=== PATIENT | male | born 1945 | race Caucasian/White ===

== ENCOUNTER 2022-10-26 10:10 | Observation (INO) | payer OTHER ==
[~2022-10-26] VITALS: Ht 177.8 cm; Wt 87.0 kg
[~2022-10-26 10:10] MED LIST: BUME2 PO; CLOP75 PO; GLIP10ER PO; INS70/30PN SC; LEVSOD100 PO; LOSHYD100 PO; MELO7.5 PO; METO25ER PO; OMEP20ER PO; PARO20 PO; ROSU10TA PO; SITA100T2 PO; THYROID; TRIHYD253A PO; VALS80; VALS80 PO
[2022-10-26 11:01] LABS: BASOPHILS ABSOLUTE AUTO 0.05 K/mm3 (0.00-0.23); BASOPHILS PERCENT AUTO 0 % (0-2); EOSINOPHILS ABSOLUTE AUTO 0.03 K/mm3 (0.00-0.68); EOSINOPHILS PERCENT AUTO 0 % (0-6); Hematocrit 37.9 % (37.0-53.0); Hemoglobin 12.6 g/dL (13.5-17.5); IMMATURE GRAN ABSOLUTE AUTO 0.06 K/mm3 (0.00-0.10); IMMATURE GRAN PERCENT AUTO 0 % (0-1); LYMPHOCYTES ABSOLUTE AUTO 0.61 K/mm3 (0.84-5.20); LYMPHOCYTES PERCENT AUTO 4 % (21-46); MONOCYTES PERCENT AUTO 10 % (4-13); Mean Corpuscular HGB 27.8 pg (26.0-34.0); Mean Corpuscular HGB Conc 33.2 g/dL (31.5-36.5); Mean Corpuscular Volume 84 fL (80-100); Mean Platelet Volume 12.7 fL (9.1-12.4); NEUTROPHILS PERCENT AUTO 85 % (41-73); Platelet Count 173 K/mm3 (150-400); RDW Coefficient Variation 12.7 % (11.7-14.2); RDW Standard Deviation 38.7 fL (35.1-46.3); Red Blood Cell Count 4.54 M/mm3 (4.30-5.90); White Blood Cell Count 13.95 K/mm3 (4.00-11.30)
[2022-10-26 11:17] LABS: Albumin, Blood 3.4 g/dL (3.4-5.0); Albumin/Globulin Ratio 0.9 (0.8-1.8); Bilirubin, Total 1.6 mg/dL (0.1-1.0); Bun/Creatinine Ratio 14.6 (12.0-20.0); Calcium, Blood 8.8 mg/dL (8.5-10.1); Creatinine, Blood 1.37 mg/dL (0.60-1.20); Globulin, Blood 3.6 g/dL (2.2-4.0); Potassium, Blood 3.8 mmol/L (3.5-5.5)
[2022-10-26] MEDS ORDERED: AMLO5 PO (12:29)
[2022-10-26] MEDS ORDERED: ROSU10TA PO (12:29)
[2022-10-26] MEDS ORDERED: LOSA25 PO (12:47)
--- NOTE | 2022-10-26 15:02 | NUR ---
pt arrived to the medical floor from the er a/ox4, pleasant and cooperative. pt oriented to the room layout and call system. pt denies any chest pain n/v, or shortness of breath. call light in reach, will continue to monitor and assess for changes
--- NOTE | 2022-10-26 18:30 | NUR ---
PT IS A/OX4, PLEASANT AND COOPERATIVE. THE PT IS UP WITH MINIMAL STAND BY ASSIST. PT DENIED ANY PAIN, N/V OR SOB. PT APPEARS TO BE BREATHING EASILY ON RA AT THIS TIME. CALL LIGHT IN REACH. WILL CONTINUE TO MONITOR AND ASSESS FOR CHANGES. VSS AT THIS TIME. TELE ON
--- NOTE | 2022-10-27 05:36 | NUR ---
SHIFT SUMMARY A/OX4, IND IN ROOM. TELE SR IN THE 60S. DENIES CHEST PAIN/PRESSURE. VSS, NO ACUTE CHANGES AT THIS TIME. BED IN LOWEST POSIITON WITH CALL LIGHT IN REACH. WILL CONTINUE TO MONITOR AND REPORT TO ONCOMING RN.
[2022-10-27 05:53] LABS: BASOPHILS ABSOLUTE AUTO 0.04 K/mm3 (0.00-0.23); BASOPHILS PERCENT AUTO 0 % (0-2); EOSINOPHILS ABSOLUTE AUTO 0.05 K/mm3 (0.00-0.68); EOSINOPHILS PERCENT AUTO 0 % (0-6); Hematocrit 32.5 % (37.0-53.0); Hemoglobin 10.9 g/dL (13.5-17.5); IMMATURE GRAN ABSOLUTE AUTO 0.09 K/mm3 (0.00-0.10); IMMATURE GRAN PERCENT AUTO 1 % (0-1); LYMPHOCYTES PERCENT AUTO 10 % (21-46); MONOCYTES ABSOLUTE AUTO 1.32 K/mm3 (0.16-1.47); MONOCYTES PERCENT AUTO 11 % (4-13); Mean Corpuscular HGB 28.1 pg (26.0-34.0); Mean Corpuscular HGB Conc 33.5 g/dL (31.5-36.5); Mean Corpuscular Volume 84 fL (80-100); NEUTROPHILS ABSOLUTE AUTO 8.94 K/mm3 (1.96-9.15); NEUTROPHILS PERCENT AUTO 77 % (41-73); Platelet Count 124 K/mm3 (150-400); RDW Coefficient Variation 12.9 % (11.7-14.2); RDW Standard Deviation 38.9 fL (35.1-46.3); Red Blood Cell Count 3.88 M/mm3 (4.30-5.90); White Blood Cell Count 11.64 K/mm3 (4.00-11.30)
[2022-10-27 05:54] LABS: Mean Platelet Volume 13.6 fL (9.1-12.4)
[2022-10-27 06:35] LABS: Magnesium, Blood 1.9 mg/dL (1.6-2.4)
[2022-10-27 06:39] LABS: Albumin/Globulin Ratio 0.9 (0.8-1.8); Bun/Creatinine Ratio 17.4 (12.0-20.0); Calcium, Blood 8.5 mg/dL (8.5-10.1); Creatinine, Blood 1.61 mg/dL (0.60-1.20); Globulin, Blood 3.3 g/dL (2.2-4.0); Potassium, Blood 4.1 mmol/L (3.5-5.5); Total Protein, Blood 6.3 g/dL (6.4-8.2)
--- NOTE | 2022-10-27 07:33 | NUR ---
Awake, alert and oriented. Denies pain/discomfort in chest with deep inspiration. STates his only pain this morning is in the back of his neck when he is lying down. Otherwise he states he feels fine. States eating and drinking fine yesterday. IV infusing NS at 75 cc/hour. States that he was awoken often last night and this morning he wants to take a nap before breakfast.
[2022-10-27] MEDS ORDERED: NOVOLOG MI100 UNIT/2 SC (10:50)
[2022-10-27] MEDS ORDERED: ASPI325 PO (10:53)
[2022-10-27] MEDS ORDERED: COLCHICINE0.6 MG PO (10:54)
--- NOTE | 2022-10-27 11:35 | NUR ---
AFter discharge instructions, pt states he is going to visit his sister in room 359 before going home. Ambulatory independently without difficulty.
== END 2022-10-27 11:37 | disposition home or self-care (01) ==
LOC: ER 10:10 → PCU 10:11 → ERHOLD 10:11 → PCU 14:24
PROVIDERS: Nurse Practitioner Acute Care; Student in an Organized Health Care Education/Training Program; ADMIT Internal Medicine
DX: I48.0 Paroxysmal atrial fibrillation (principal); I30.9 Acute pericarditis, unspecified; R07.9 Chest pain, unspecified; Z86.73 Personal history of transient ischemic attack (TIA), and cerebral infarction without residual deficits; E03.9 Hypothyroidism, unspecified; Z79.82 Long term (current) use of aspirin; Z79.02 Long term (current) use of antithrombotics/antiplatelets; Z79.4 Long term (current) use of insulin; E11.22 Type 2 diabetes mellitus with diabetic chronic kidney disease; I12.9 Hypertensive chronic kidney disease with stage 1 through stage 4 chronic kidney disease, or unspecified chronic kidney disease; E78.5 Hyperlipidemia, unspecified; N18.30 Chronic kidney disease, stage 3 unspecified
CPT/HCPCS: 36415; 71046; 80053; 82947; 83735; 83880; 84443; 84484; 85025; 85651; 86140; 93005; 93010; 93306; 96361; 96374-59; 99285-25; A9270; G0378; J7030

== ENCOUNTER 2025-09-19 12:16 | Observation (INO) | payer OTHER ==
[~2025-09-19] VITALS: Ht 177.8 cm; Wt 82.1 kg
[~2025-09-19 12:16] MED LIST changes: +AMLO5 PO; +ASPI325 PO; +COLCHICINE0.6 MG PO; +LOSARTAN POTAS100 M1 PO; +NOVOLOG MI100 UNIT/2 SC
[2025-09-19 12:55] LABS: BASOPHILS ABSOLUTE AUTO 0.03 K/mm3 (0.00-0.23); BASOPHILS PERCENT AUTO 0 % (0-2); EOSINOPHILS ABSOLUTE AUTO 0.13 K/mm3 (0.00-0.68); EOSINOPHILS PERCENT AUTO 2 % (0-6); Hematocrit 19.2 % (37.0-53.0); IMMATURE GRAN ABSOLUTE AUTO 0.05 K/mm3 (0.00-0.10); IMMATURE GRAN PERCENT AUTO 1 % (0-1); LYMPHOCYTES ABSOLUTE AUTO 0.47 K/mm3 (0.84-5.20); LYMPHOCYTES PERCENT AUTO 6 % (21-46); MONOCYTES ABSOLUTE AUTO 0.65 K/mm3 (0.16-1.47); MONOCYTES PERCENT AUTO 9 % (4-13); Mean Corpuscular HGB Conc 28.6 g/dL (31.5-36.5); Mean Corpuscular Volume 73 fL (80-100); NEUTROPHILS ABSOLUTE AUTO 6.22 K/mm3 (1.96-9.15); NEUTROPHILS PERCENT AUTO 82 % (41-73); NRBC ABSOLUTE 0.02 K/mm3 (0.00-0.02); NRBC Auto 0.3 /100 WBC (0.0-0.2); Platelet Count 199 K/mm3 (150-400); RDW Coefficient Variation 17.3 % (11.7-14.2); RDW Standard Deviation 46.0 fL (35.1-46.3)
[2025-09-19] MEDS ORDERED: Pantoprazole Sodium 40 MG Injection IV ONE ×2 (12:55)
[2025-09-19 13:10] LABS: Hemoglobin 5.5 g/dL (13.5-17.5)
[2025-09-19 13:12] LABS: Prothrombin Time Results 12.9 Sec (9.7-11.5)
[2025-09-19 13:20] LABS: Alanine Aminotransfer (ALT/SGP 22.0 U/L (12-78); Albumin, Blood 3.5 g/dL (3.4-5.0); Albumin/Globulin Ratio 1.2 (0.8-1.8); Anion Gap 11.0 mmol/L (3-11); Aspartate Aminotrans (AST/SGOT 23.0 U/L (12-37); Bilirubin, Total 0.8 mg/dL (0.1-1.0); Blood Urea Nitrogen 32.0 mg/dL (8-24); CO2, Blood 20.0 mmol/L (21-32); Calcium, Blood 8.7 mg/dL (8.5-10.1); Chloride, Blood 111.0 mmol/L (98-108); Creatinine, Blood 2.32 mg/dL (0.60-1.20); Globulin, Blood 2.9 g/dL (2.2-4.0); Glucose, Blood 163.0 mg/dL (70-99); Potassium, Blood 4.6 mmol/L (3.5-5.5); Sodium, Blood 137.0 mmol/L (136-145); Total Protein, Blood 6.4 g/dL (6.4-8.2)
[2025-09-19 15:03] LABS: Ferritin, Serum 14.0 ng/mL (26-388); Total Iron Binding Capacity 406.0 ug/dL (250-450)
[2025-09-19] MEDS ORDERED: FLU VACC TS2025(65UP)/MF59C/PF 45 MCG/0.5 ML SYRINGE IM SCH (16:40)
[2025-09-19] MEDS ORDERED: Iron Dextran 50 MG / ML 2ML Vial IV ONE (16:45)
[2025-09-19] MEDS ORDERED: Iron Dextran 975 MG in NS 250 ML IV ONE (18:00)
[2025-09-19 18:23] VITALS: BP 124/71
[2025-09-19] MEDS ORDERED: NS 500 ML IV SCH (18:25)
--- NOTE | 2025-09-19 18:31 | NUR ---
New patient admit @ 6:31 pm. 80 Male, full code, super sweet, Here for Hemo. Needs urgent infusion, Hemo is 5. Upon arrival to med floor room 345, skin check, vitals, weight, home med conversation, Protonix given in the e.r. Steady on feet but stated "dizzy". Patient informed Black Tarry stools Q6 months. Hx Erosive esopgitis, Kidney, Chemo, Anemia, AC/HS blood sugars. Performed in E.R. Here for observation and infusion. Fresh ice water, Urinal at bedside and call light in reach.
[2025-09-19] MEDS ORDERED: DILT120 PO (18:32)
[2025-09-19] MEDS ORDERED: Insulin Lisp Protam 75/Lisp 25 100 Unit/ML 3ML Pen SC SCH (21:00)
[2025-09-19 21:11] VITALS: BP 109/62
[2025-09-19] MEDS ORDERED: NS 500 ML IV ONE (21:55)
--- NOTE | 2025-09-19 21:57 | NUR ---
CALL PLACE TO PROVIDER REGARDING PTS BLOOD PRESSURE. ORDERS GIVEN AND ENTERED IN. HOSPITALIST INFORMED OF PT FEELING DIZZY AND NAUSEOUS. HOSPITALIST ASKED IF HE COULDCOME SIGN THE HIGH RISK FORM AND STATED HE WAS TIED UP AND TO CAll .
--- NOTE | 2025-09-19 22:03 | NUR ---
CALL PLACED TO REGARDING HIGH RISK TRANSFUSION FORM NEEDINGTO BE SIGNED. PROVIDER DID NOT ANSWER.
--- NOTE | 2025-09-19 22:09 | NUR ---
CALLPLACE TO [facility] SECOND TIME REGARDING THE HIGH RISK BLOOD FORM. NO ANSWER. CALL PLACED TO ROSA JASMINE ABOUT SIGNING THE FORM. THIS NURSE STATED THAT SHE WOULD WALK THE FORM DOWN TO THE PROVIDER TO SIGN BUT PROVIDER STATED HE WAS NOTIN THE HOSPITAL AT THIS TIME AND WILL BE BACK IN 6 MINUETS. PROVIDER STATED HE WILL GIVE DR. ALAN A CALL TO COME SIGN IT AND IF HE CAN NOT THEN ROSA JASMINE STATED HE WILL BE UP SIGN. WE RECIEVED A CALL FROM DR. ALAN AT [phone] REGARDING THIS ISSUE.
[2025-09-19 22:20] VITALS: BP 121/61
--- NOTE | 2025-09-19 22:36 | NUR ---
dr. nobles came up to the pts bedside and examined pt and educated him on the form and then the form. High risk transfusion form sent back to blood bank with blod slip.
[2025-09-19 22:37] VITALS: BP 118/65
[2025-09-19 22:50] VITALS: BP 118/65
[2025-09-19 23:08] VITALS: BP 116/68
[2025-09-20 00:16] VITALS: BP 117/68
[2025-09-20 01:28] VITALS: BP 121/72
[2025-09-20 02:36] VITALS: BP 117/7; BP 117/76
[2025-09-20 03:43] VITALS: BP 120/79
--- NOTE | 2025-09-20 04:08 | NUR ---
CALL PLACED TO PROVIDER: CALL PLACED TO PROVIDER ABOUT LARGE AMOUNT OF BLOOD IN STOOL AND TOILET. NO NEW ORDERS.
--- NOTE | 2025-09-20 04:13 | NUR ---
SHIFT SUMMARY: PT IS AOX4 AND ABLE TO MAKE NEEDS KNOW. PT HAD A BAG OF IRON AT THE START OF SHIFT AND 2 UNITS OF BLOOD. PT IS A 1 PERSON AST TO THE BATHROOM DUE TO PT STATING THEY FEEL NAUSEOUS AND DIZZY AND THEN FEELING TIRED WITH EXCERTION. PT STATED THAT AFTER THEY WALK A SHORT DISTANCE THEY HAVE TO STOP AND RECOVER FOR 3 TO 5 MINUETS. PT IS CONTIENT OF BOWEL AND BLADDER.
[2025-09-20 05:30] LABS: Hematocrit 26.9 % (37.0-53.0); Hemoglobin 8.5 g/dL (13.5-17.5); Mean Corpuscular HGB Conc 31.6 g/dL (31.5-36.5); Mean Corpuscular Volume 76 fL (80-100); NRBC ABSOLUTE 0.05 K/mm3 (0.00-0.02); NRBC Auto 0.6 /100 WBC (0.0-0.2); Platelet Count 167 K/mm3 (150-400); RDW Coefficient Variation 19.2 % (11.7-14.2); RDW Standard Deviation 52.4 fL (35.1-46.3)
[2025-09-20] MEDS ORDERED: Pantoprazole Sodium 40 MG Injection IV SCH (06:00)
[2025-09-20 06:21] LABS: Anion Gap 10.0 mmol/L (3-11); Blood Urea Nitrogen 36.0 mg/dL (8-24); CO2, Blood 21.0 mmol/L (21-32); Calcium, Blood 8.7 mg/dL (8.5-10.1); Chloride, Blood 113.0 mmol/L (98-108); Creatinine, Blood 2.11 mg/dL (0.60-1.20); Glucose, Blood 123.0 mg/dL (70-99); Potassium, Blood 4.2 mmol/L (3.5-5.5); Sodium, Blood 140.0 mmol/L (136-145)
[2025-09-20 07:12] VITALS: BP 134/78
[2025-09-20 07:37] LABS: Hematocrit 24.0 % (37.0-53.0); Hemoglobin 7.6 g/dL (13.5-17.5)
[2025-09-20] MEDS ORDERED: Polyethylene Glycol 3350 17 gm PO PRN (10:00)
[2025-09-20 13:48] VITALS: BP 134/78
--- NOTE | 2025-09-20 15:20 | NUR ---
PATIENT TRANSFERRED VIA AMBULANCE TO [facility] FOR GI CONSULT. REPORT CALLED TO JESSICA HERNADEZ ON THE MEDICAL UNIT. COBRA PAPERWORK AND PATIENT BELONGINGS SENT WITH OIL WE[employer] DRI[employer]ER. PATIENT NOTIFIED FAMILY OF TRANSFER.
== END 2025-09-20 15:15 | disposition short-term general hospital (02) ==
LOC: ER 12:16 → MEDS 12:17
PROVIDERS: Emergency Medicine; Family Medicine; Registered Nurse; ADMIT Hospitalist
DX: I12.9 Hypertensive chronic kidney disease with stage 1 through stage 4 chronic kidney disease, or unspecified chronic kidney disease (principal); E11.22 Type 2 diabetes mellitus with diabetic chronic kidney disease; N18.30 Chronic kidney disease, stage 3 unspecified; D63.1 Anemia in chronic kidney disease; N17.9 Acute kidney failure, unspecified; E03.9 Hypothyroidism, unspecified; E78.5 Hyperlipidemia, unspecified; K21.9 Gastro-esophageal reflux disease without esophagitis; I25.10 Atherosclerotic heart disease of native coronary artery without angina pectoris; Z86.73 Personal history of transient ischemic attack (TIA), and cerebral infarction without residual deficits; Z87.11 Personal history of peptic ulcer disease; Z87.891 Personal history of nicotine dependence; Z79.02 Long term (current) use of antithrombotics/antiplatelets; Z79.4 Long term (current) use of insulin; Z79.82 Long term (current) use of aspirin; Z79.890 Hormone replacement therapy; Z79.899 Other long term (current) drug therapy
CPT/HCPCS: 36415; 36430; 80048; 80053; 80061; 82728; 82947; 83036; 83540; 83550; 84153; 84439; 84443; 85014; 85018; 85025; 85027; 85610; 85730; 86376; 86800; 86850; 86900; 86901; 86902; 86922; 93005; 93010; 96365; 96366; 96367; 96375; 96376; 99285-25; A9270; G0378; J1750; J1815; J1938; J2470; J7040; J7050; P9016